=== PATIENT | female | born 1980 | race Hispanic/Latino ===

== ENCOUNTER 2018-01-10 12:49 | Outpatient (CLI) | payer BC ==
--- NOTE | 2018-01-10 15:38 | History and Physical Report ---
History of Present Illness Date of examination: 01/10/18 Chief complaint: high suspicion lt breast lesion on MR
--- NOTE | 2018-01-10 15:40 | Procedure Note ---
Date of procedure: 01/10/18 Pre-op diagnosis: lt breast mass Post-op diagnosis: same Procedure: u/s guided lt breast mass Findings: solid tissue Anesthesia: local Surgeon: RADHA MONAHAN Estimated blood loss: none Pathology: list (lt breast tissue) Specimen disposition: to lab Condition: stable Disposition: same day
--- NOTE | 2018-01-10 15:40 | Ultrasound Report ---
Bilateral breast ultrasound, ultrasound guided left breast biopsy, clip placement, 2 view left mammogram: The patient presents with an MR report indicating no malignant appearing mass in the left breast at the 6:00 location and an indeterminate appearing finding measuring approximately 5.4 mm in the upper outer right breast. Ultrasound of the right breast in the 9:00 location 8 cm from the nipple demonstrates a circumscribed anechoic mass measuring 1 cm consistent with simple cysts. No other lesions are identified in the lateral breast. Imaging of the left breast in the 6:00 location demonstrates a 1.5 cm lobulated hypoechoic mass. There is no significant shadowing. Images of the left axilla fail to identify any suspicious lymph node. The left breast skin was draped and cleansed with Betadine. 1% lidocaine used for local anesthesia. Through a small skin yamileth a 13-gauge sheath was placed through which multiple biopsy cores were obtained using a 14-gauge disposable Bard biopsy device. A marker was left in place. All procedures performed under ultrasound guidance. The entrance site was bandaged. Two-view mammogram confirm positioning of the clip located in the central breast. The patient has a generally dense fibroglandular pattern which is not otherwise remarkable. No patient or procedure complications. The patient was given followup instructions and discharged.
== END 2018-01-10 12:50 | disposition home or self-care (01) ==
LOC: SPVWC 12:49
PROVIDERS: ATTEND Surgery
DX: C50.912 Malignant neoplasm of unspecified site of left female breast (principal); R92.0 Mammographic microcalcification found on diagnostic imaging of breast
CPT/HCPCS: 19083; 76642; 77065; 88305; 88342; 88361; A4648

== ENCOUNTER 2018-01-22 12:52 | Outpatient (CLI) | payer BC ==
--- NOTE | 2018-01-22 16:02 | Mammography Report ---
RIGHT DIGITAL DIAGNOSTIC MAMMOGRAM: 01/22/18 12:52:00 CLINICAL: For clip placement immediately status post MRI biopsy. COMPARISON:01/15/18 FINDINGS: A biopsy clip is now identified in the upper outer quadrant at the site of today's MRI biopsy. No mass or architectural distortion. IMPRESSION: Concordant clip placement status post MRI biopsy. BI-RADS CATEGORY: 4--Suspicious Pathology pending.
--- NOTE | 2018-01-22 16:21 | Magnetic Resonance Report ---
MRI GUIDED VACUUM ASSISTED CORE BIOPSY RIGHT BREAST: 01/22/18 12:52:00 CLINICAL: A 5 mm right upper outer nodule identified by MRI. Newly diagnosed left breast cancer. COMPARISON: [facility] MRI 12/29/17 FINDINGS: Consent for the procedure was obtained. A Vibrant dynamic postcontrast series was performed on a 1.5 Shell magnet using an 8 channel [employer] dedicated breast coil. The lesion was localized and targeted using [employer] biopsy software. The skin was anesthetized with 1% lidocaine and a small dermatotomy was made. 2% lidocaine was administered for deeper anesthesia. 9-G biopsy was performed with an [employer] vacuum assisted device. Imaging demonstrated satisfactory positioning of the probe and samples were obtained. A clip was placed after confirmation of adequate sampling. The probe was removed and hemostasis was achieved with pressure to the site. A sterile dressing was applied. The patient tolerated the procedure well and there were no apparent complications. A two view mammogram demonstrated concordant clip placement and no hematoma at the biopsy site. The patient left the department in good condition and was given instructions for wound care and follow-up. IMPRESSION: Uncomplicated MRI biopsy with clip placement right breast.
== END 2018-01-22 12:53 | disposition home or self-care (01) ==
LOC: SPVIMAG 12:52
PROVIDERS: ATTEND Surgery
DX: R92.0 Mammographic microcalcification found on diagnostic imaging of breast (principal); N60.21 Fibroadenosis of right breast
CPT/HCPCS: 19085; 77065; 88305; A9577

== ENCOUNTER 2018-01-29 07:48 | Day surgery (SDC) | payer BC ==
[2018-01-29] MEDS ORDERED: ZOFRAN IV PRN ×2 (08:55→11:30)
[2018-01-29] MEDS ORDERED: DILAUDID IV PRN ×2 (08:55→11:30)
[2018-01-29] MEDS ORDERED: TORADOL IV PRN ×2 (08:55→11:30)
[2018-01-29] MEDS ORDERED: NEURONTIN PO NR (09:00)
[2018-01-29] MEDS ORDERED: VERSED IV NR (09:00)
[2018-01-29] MEDS ORDERED: LACTATED RINGERS 1,000 ML IV SCH ×2 (09:00)
[2018-01-29] MEDS ORDERED: XYLOCAINE 1% 20 mL ONE ×2 (09:10→11:16)
--- NOTE | 2018-01-29 09:46 | Mammography Report ---
Left breast needle localization: The patient presents with a marker in the central left breast. Using mammographic grid technique a lateral approach was utilized. The skin was cleansed and 1% lidocaine used for local anesthesia. A 7.5 cm Dobson needle was introduced and its position confirmed with mammography. A wire was then introduced with removal of the needle and additional mammography to confirm wire positioning. No patient complications encountered.
[2018-01-29] MEDS ORDERED: DECADRON ONE (09:47)
[2018-01-29] MEDS ORDERED: MARCAINE 0.5% 30 ML INFILTRATI ONE ×2 (09:47→11:20)
[2018-01-29] MEDS ORDERED: ANCEF/STERILE WATER 2 GM/20 ML IV NR (10:00)
--- NOTE | 2018-01-29 10:42 | Consultation ---
History of Present Illness Consult date: 01/29/18 Reason for consult: central line Requesting physician: KASHMIR HERNANDEZ Chief complaint: Left breast cancer - History of present illness History of present illness: 37-year-old female with recent diagnosis of left breast cancer has been referred to general surgery for port placement. Patient is scheduled for left breast surgery today. We have been asked to place the port at the same time. Patient does have experience with the port as her required. Denies any trauma, surgery, infections to the right upper chest or neck area. Denies any recent fevers, chills, nausea, vomiting. Past History Past Medical History: GERD, other (seasonal allergies) Past Surgical History: Other (sinus surgery) Social history: . denies: smoking, alcohol abuse Family history: no significant family history Medications and Allergies Allergies Allergy/AdvReac Type Severity Reaction Status Date / Time No Known Allergies Allergy Verified 01/26/18 14:08 Home Medications Medication Instructions Recorded Confirmed Last Taken Type Loratadine [Claritin] 10 mg PO DAILY 01/26/18 01/29/18 01/28/18 History Omeprazole Magnesium [PriLOSEC Otc] 20 mg PO QDAY 01/26/18 01/29/18 01/29/18 05: 30 History Active Meds: Active Medications Cefazolin Sodium (Ancef/Sterile Water 2 Gm/20 Ml) 2 gm IV PREOP NR Stop: 01/29/18 23:59 Celecoxib (Celebrex) 200 mg PO PREOP NR Stop: 01/29/18 23:59 Last Admin: 01/29/18 10:11 Dose: 200 mg Gabapentin (Neurontin) 300 mg PO PREOP NR Stop: 01/29/18 23:59 Last Admin: 01/29/18 10:11 Dose: 300 mg Hydromorphone HCl (Dilaudid) 0.5 mg IV Q10MIN PRN PRN Reason: Pain , Severe (7-10) Stop: 01/29/18 18:00 Lactated Ringer's (Lactated Ringers) 1,000 mls @ 100 mls/hr IV DIRECT WADE Stop: 01/29/18 15:00 Last Admin: 01/29/18 10:02 Dose: 100 mls/hr Lactated Ringer's (Lactated Ringers) 1,000 mls @ 100 mls/hr IV DIRECT WADE Ketorolac Tromethamine (Toradol) 30 mg IV ONCE PRN PRN Reason: Pain, Moderate (4-6) Stop: 01/29/18 18:00 Midazolam HCl (Versed) 2 mg IV PREOP NR Stop: 01/29/18 23:59 Last Admin: 01/29/18 10:25 Dose: 1 mg Ondansetron HCl (Zofran) 4 mg IV ONCE PRN PRN Reason: Nausea And Vomiting Stop: 01/29/18 18:00 Review of Systems - Constitutional no fever, no chills, no sweats - Cardiovascular no chest pain, no shortness of breath - Respiratory no cough, no shortness of breath - Gastrointestinal no abdominal pain - Genitourinary Genitourinary: no dysuria - Integumentary no rash, no pruritis, no redness, no sores, no wounds - Hematologic/Lymphatic no easy bruising, no easy bleeding - Allergic/Immunologic no persistent infections Exam - General physical appearance Positive: no distress, no pain, other (healthy appearing) - Eyes Positive: normal occular movement - Neck Positive: trachea midline, other (no evidence of neck infection, prior trauma, prior surgery.) - Respiratory Positive: normal expansion, normal respiratory effort, clear to auscultation - Cardiovascular Rhythm: regular - Integumentary no rash, no growths, no abnormal pigmentation, other (no signs of infection, prior trauma, prior surgeries to the right upper chest.) - Neurologic Neurologic: alert and oriented to time, place and person, motor strength and sensation are grossly intact - Psychiatric Psychiatric: appropriate mood/affect, intact judgment & insight Assessment and Plan - Patient Problems (1) Breast CA Current Visit: Yes Status: Acute Qualifiers: Patient sex: female Laterality: left Plan to address problem: Patient appears stable. Patient appears to be an adequate candidate for port placement. Procedure, risks, benefits, alternatives were discussed. All questions were answered. Consent was obtained. We will do the procedure under ultrasound guidance. This was explained to the patient. Time=30min
[2018-01-29] MEDS ORDERED: HEPARIN 10,000 UNITS/10 ML ONE (11:17)
[2018-01-29] MEDS ORDERED: NACL 0.9% 250ML 250 ML ONE (11:17)
[2018-01-29] MEDS ORDERED: MARCAINE 0.25% INFILTRATI ONE (11:17)
--- NOTE | 2018-01-29 11:29 | Anesthesia Day of Surgery ---
Anesthesia Day of Surgery - Day of Surgery Patient Examined: Yes Patient H&P Reviewed: Yes Patient is NPO: Yes Beta Blockers: No Cardiac Clearance: No Pulmonary Clearance: No
--- NOTE | 2018-01-29 11:30 | Anesthesia Consultation ---
Anesthesia Consult and Med Hx Date of service: 01/29/18 - Airway Anesthetic Teeth Evaluation: Good ROM Head & Neck: Adequate Mallampati Class: Class II - Pulmonary Exam CTA: Yes - Cardiac Exam Cardiac Exam: RRR - Pre-Operative Health Status ASA Pre-Surgery Classification: ASA2 Proposed Anesthetic Plan: General - Pre-Anesthesia Comment Pre-Anesthesia Comments: history of pot op nausea/vomitting - Pulmonary Hx Smoking: No - Cardiovascular System Hx Cardia Arrhythmia: No Hx Pacemaker: No Hx Internal Defibrillator: No Hx Valvular Heart Disease: No Hx Heart Murmur: No Hx Peripheral Vascular Disease: No - Central Nervous System Hx Neuromuscular Disorder: No Hx Seizures: No CVA: No Hx Back Pain: No Hx Psychiatric Problems: No - Gastrointestinal Hx Gastroesophageal Reflux Disease: Yes (gerd) - Endocrine Hx Renal Disease: No Hx End Stage Renal Disease: No Hx Cirrhosis: No Hx Liver Disease: No - Other Systems Hx Alcohol Use: No Hx Substance Use: No Hx Cancer: Yes
[2018-01-29] MEDS ORDERED: NACL 0.9% 1000 ML 1,000 ML IV SCH (12:00)
[2018-01-29] MEDS ORDERED: TRANSDERM-SCOP TD NR (12:00)
[2018-01-29] MEDS ORDERED: ZOFRAN ONE (12:12)
[2018-01-29] MEDS ORDERED: XYLOCAINE MPF 2% ONE (12:12)
[2018-01-29] MEDS ORDERED: DILAUDID ONE (12:13)
[2018-01-29] MEDS ORDERED: DIPRIVAN 10 MG/ML IV ONE (12:13)
[2018-01-29] MEDS ORDERED: ePHEDrine SULFATE ONE (13:11)
--- NOTE | 2018-01-29 13:30 | Short Stay Summary ---
Short Stay Documentation Date of service: 01/29/18 - History H&P: obtained from office Past Medical History: GERD, other (seasonal allergies) Past Surgical History: Other (sinus surgery) Social history: , no smoking, no alcohol abuse - Allergies and Medications Current Medications: Allergies No Known Allergies Allergy (Verified 01/26/18 14:08) Home Medications Medication Instructions Recorded Confirmed Last Taken Type Loratadine [Claritin] 10 mg PO DAILY 01/26/18 01/29/18 01/28/18 History Omeprazole Magnesium [PriLOSEC Otc] 20 mg PO QDAY 01/26/18 01/29/18 01/29/18 05: 30 History Active Medications Cefazolin Sodium (Ancef/Sterile Water 2 Gm/20 Ml) 2 gm IV PREOP NR Stop: 01/29/18 23:59 Celecoxib (Celebrex) 200 mg PO PREOP NR Stop: 01/29/18 23:59 Last Admin: 01/29/18 10:11 Dose: 200 mg Gabapentin (Neurontin) 300 mg PO PREOP NR Stop: 01/29/18 23:59 Last Admin: 01/29/18 10:11 Dose: 300 mg Hydromorphone HCl (Dilaudid) 0.5 mg IV Q10MIN PRN PRN Reason: Pain , Severe (7-10) Stop: 01/29/18 18:00 Hydromorphone HCl (Dilaudid) 0.5 mg IV Q10MIN PRN PRN Reason: Pain , Severe (7-10) Lactated Ringer's (Lactated Ringers) 1,000 mls @ 100 mls/hr IV DIRECT WADE Stop: 01/29/18 15:00 Last Admin: 01/29/18 10:02 Dose: 100 mls/hr Lactated Ringer's (Lactated Ringers) 1,000 mls @ 100 mls/hr IV DIRECT WADE Sodium Chloride (Nacl 0.9% 1000 Ml) 1,000 mls @ 42 mls/hr IV DIRECT WADE Ketorolac Tromethamine (Toradol) 30 mg IV ONCE PRN PRN Reason: Pain, Moderate (4-6) Stop: 01/29/18 18:00 Ketorolac Tromethamine (Toradol) 15 mg IV ONCE PRN PRN Reason: Pain, Mild (1-3) Midazolam HCl (Versed) 2 mg IV PREOP NR Stop: 01/29/18 23:59 Last Admin: 01/29/18 10:25 Dose: 1 mg Ondansetron HCl (Zofran) 4 mg IV ONCE PRN PRN Reason: Nausea And Vomiting Stop: 01/29/18 18:00 Ondansetron HCl (Zofran) 4 mg IV ONCE PRN PRN Reason: Nausea And Vomiting Scopolamine (Transderm-Scop) 1 each TD PREOP NR Stop: 02/01/18 11:59 - Brief post op/procedure progress note Date of procedure: 01/29/18 Pre-op diagnosis: Left breast cancer of the central breast Post-op diagnosis: same Procedure: Left needle localization partial mastectomy with SLNB Anesthesia: GETA Findings: Left wire and clip present within radiograph specimen; 2 SLNs Surgeon: KASHMIR HERNANDEZ Estimated blood loss: minimal Pathology: list (left partial mastectomy with SLNB) Specimen disposition: to lab Condition: stable - Disposition Condition at discharge: Good Disposition: DC-01 TO HOME OR SELFCARE Short Stay Discharge Plan Activity: other (no heavy lifting) Diet: regular Wound: other (keep incision clean and dry; may shower in 24 hours; no baths, pools or lakes; do not rub or scrub incision; wear breast binder) Follow up with: WYATT SALAZAR [Other] - 7 Days Prescriptions: HYDROcodone/APAP 5-325 [Hayes 5/325] 1 each PO Q6HR PRN #30 tablet PRN Reason: Pain Promethazine [Phenergan TAB] 25 mg PO Q8HR PRN #7 tab PRN Reason: Nausea
[2018-01-29] MEDS ORDERED: WATER FOR IRRIG STERILE IR ONE (13:35)
[2018-01-29] MEDS ORDERED: NACL 0.9% IR ONE (13:35)
[2018-01-29] MEDS ORDERED: XYLOCAINE 1% 20 mL INFILTRATI ONE ×3 (13:36→13:37)
[2018-01-29] MEDS ORDERED: MARCAINE 0.5% INFILTRATI ONE ×2 (13:36→13:59)
[2018-01-29] MEDS ORDERED: HEPARIN IV ONE (13:38)
--- NOTE | 2018-01-29 13:39 | Operative Report ---
Operative Report Operative Report: January 29, 2018 Preoperative diagnosis: Left breast cancer of the central breast Postoperative diagnosis: Same Procedure: Left needle localization partial mastectomy of the central breast and SLNB Surgeon: Argelia Zhang MD Anesthesia: General Findings: Left wire and clip present within radiograph specimen; x2 SLNs Complications: None EBL: Minimal Disposition: PACU in good condition Indications for operative procedure: This is a 37 year old lady with newly diagnosed left central breast cancer, Stage I [id number] ER/SD/Her-2 positive. Recommendations are to proceed with breast conservation. Genetic testing with no significant gene mutation. Patient diagnosed from screening breast MRI and findings of left breast mass at the 6:00 position of 13-14 mm. She understands the role of adjuvant chemoradiation therapy. She wished to proceed with the above procedure. Procedure in detail: The patient was taken to radiology for wire placement for localization known area of cancer. Patient was then taken to the operating room. Gen. anesthesia was administered. The left nipple was injected with radioisotope. The left breast and axilla were prepped and draped in the normal sterile operative fashion. The wire was identified. Timeout was performed. Gamma probe was inserted into the axilla. The area of hot spot was identified. A left axillary incision was made with a 15 blade knife with dissection taken down to the subcutaneous tissues. The axillary fascia was opened with the Bovie cautery. 2 SLNS were identified. All remaining counts were less than 10% of the highest count. Lymph nodes were sent to pathology for permanent processing. Hemostasis was obtained in the left axillary cavity. Axillary cavity was appropriately irrigated and suctioned. The axillary cavity was anesthetized with 1% lidocaine mixed with quarter percent Marcaine. Hemostasis was noted. Axillary fascia was approximated and closed using interrupted 3-0 Vicryl and the skin brought together and closed using a running 4-0 Monocryl followed by skin affix. Attention was then taken towards the left breast. Lateral breast incision was made with a 15 blade knife and dissection taken down to subcutaneous tissues. First began raising of the lateral flap with removal of the wire from the skin with dissection take down to the pectoralis muscle, followed by raising of the medial flap, superior flap and inferior flap with all flaps taken down to the pectoralis muscle. The breast area of concern was appropriately removed posteriorly from the pectoralis muscle with the aid of the Bovie cautery. The wire was not encountered. Specimen was marked and then sent to pathology and radiology; radiograph specimen with wire, clip and mass present. Additional revised anterior margin was taken as well and marked. Breast cavity was irrigated and hemostasis was obtained. The breast cavity was anesthetized with 1 % lidocaine mixed with quarter percent Marcaine. The posterior deep breast tissues were approximated and closed using interrupted 3-0 Vicryl. The subcutaneous tissues were approximated and closed using interrupted 3-0 Vicryl followed by closing of the skin with a running 4-0 Monocryl and skin affix. The patient tolerated surgery very well and she was awaken from anesthesia without any complication and transported to PACU in good condition.
[2018-01-29] MEDS ORDERED: NACL 0.9% IV ONE (13:40)
--- NOTE | 2018-01-29 14:35 | Fluoroscopy Report ---
FLUOROSCOPY CENTRAL VENOUS DEVICE PLACEMENT HISTORY: chest pain AP view of the chest demonstrates a normal mediastinal and cardiac contour with clear lungs and normal bony and soft tissue structures. A right [id number] has been inserted which terminates in the lower right atrium. No pneumothorax. IMPRESSION: Unremarkable AP chest.
--- NOTE | 2018-01-29 14:37 | Post Operative Note ---
Date of procedure: 01/29/18 (Dictation:[id number]) Pre-op diagnosis: breast cancer Post-op diagnosis: same Findings: normal anatomy Procedure: Ultrasound guided port placement. Anesthesia: GETA Surgeon: HÉCTOR GRAFF Estimated blood loss: minimal (10cc) Pathology: none Condition: stable Disposition: no change
--- NOTE | 2018-01-29 16:22 | Mammography Report ---
Operative specimen mammogram: A single tissue specimen is submitted it includes the targeted marker and localizing wire.
[2018-01-29] MEDS ORDERED: NORCO 5/325 PO PRN (17:14)
[2018-01-29 19:09] VITALS: BP 123/75
--- NOTE | 2018-02-05 07:30 | Operative Report ---
PREOPERATIVE DIAGNOSIS: Breast cancer. POSTOPERATIVE DIAGNOSIS: Breast cancer. PROCEDURE: 1. Insertion of tunneled centrally inserted venous access device with subcutaneous port. 2. Ultrasound guidance for vascular access. ATTENDING PHYSICIAN: Shanthi Chauhan MD ANESTHESIA: General. ESTIMATED BLOOD LOSS: 10 mL. FLUIDS: 1200 mL. FINDINGS: Normal vascular anatomy. Chest x-ray shows no obvious complication. Implant subcutaneous port and catheter. COMPLICATIONS: No complications. DISPOSITION: Case turned over to Dr. Zhang. INDICATIONS: This is a 37-year-old woman with a recent diagnosis of breast cancer, who is in need of port placement. This was an urgent case that we got consulted on near the time of surgery. The patient assessed to be an acceptable candidate for port placement. The procedure, risks, benefits were explained to the patient. Risks included but were not limited to infection, bleeding, pain, injury to surrounding structures, possible hemopneumothorax possible need for further procedures in the future. The patient understood and consented. DESCRIPTION OF PROCEDURE: The patient was brought to the operating room and placed on the table in supine position. Ultrasound examination was done to identify the right subclavian vein and right internal jugular vein. They seemed to be acceptable targets. A roll was placed underneath the spine. Sterile prep and drape was performed. Ancef had been administered prior to start of the case. SCDs are in place. Time-out was called. Under ultrasound guidance, I first infiltrated the tissue above the subclavian vein on the right with a combination of 0.5% Marcaine and 1% lidocaine. Then under ultrasound guidance, we accessed the subclavian vein. A guidewire passed easily. We confirmed the position of the wire with fluoroscopy. I then turned my attention to creation of a pocket. We anesthetized the planned incision site and pocket space. Sharp incision was made with a scalpel. Pocket was bluntly created. We made sure the port fit and then packed the wound with gauze. I then used the tunneler to place the catheter underneath the skin and bring it out the vascular insertion site. Over the guidewire, the dilator and sheath were placed. It went easily. Guidewire was mobile the entire time. We then pulled out the wire and dilator and inserted the catheter. We checked the approximate location, adjusted its length, so it was approximately 2 vertebral body below the roberto. We then adjusted the overall length. Please note that the catheter was clamped during this time to make sure there was no aspiration of air. We then adjusted the length all the while keeping the catheter clamped. The port was attached and then placed in the pocket, we checked with fluoroscopy. The catheter had no kinks, however I felt there was a bit deep. Therefore, we pulled some of the catheter back, cut some of the length. We cut off another centimeter and a half and then reconnected everything. Prior to doing this, we did aspirate and flushed with dilute heparinized saline. It aspirated and flushed very easily. At this point, I felt that we would not gain much by continually pulling back the catheter. I thought it was acceptable at this point. We then aspirated and placed concentrated heparin in the port. We placed 5 mL of a 200 unit per mL mixture. We made sure there was no bleeding. Deep tissue and dermis was closed with interrupted 3-0 Vicryl sutures at the port site. Skin sites were closed with 4-0 Monocryl subcuticular stitches. Skin was cleaned and dried. Dermabond was placed. The patient tolerated procedure well. There were no complications. I reviewed the chest x-ray that was done in the operating room. I saw no pneumothorax. The catheter had a good path without any kinks or twists. We will wait for the official report. I spoke with the family. They are appreciative of the care. Case was turned over to Dr. Zhang. ADDENDUM DESCRIPTION OF PROCEDURE: Ultrasound examination was done of the subclavian and internal jugular vessels on the right side. They were easily compressible. I saw no evidence of any clot or narrowing. At the time of the procedure, we watched the echogenic needle going under direct vision under ultrasound guidance, I watched to go into the subclavian vein and we were able to aspirate easily, tip of the needle was within the subclavian vein. There was no obvious injury to the surrounding tissue under ultrasound guidance. JOB# [id number] LOGAN/DANA
--- NOTE | 2018-02-05 07:35 | Operative Report ---
ADDENDUM DESCRIPTION OF PROCEDURE: Ultrasound examination was done of the subclavian and internal jugular vessels on the right side. They were easily compressible. I saw no evidence of any clot or narrowing. At the time of the procedure, we watched the echogenic needle going under direct vision under ultrasound guidance, I watched to go into the subclavian vein and we were able to aspirate easily, tip of the needle was within the subclavian vein. There was no obvious injury to the surrounding tissue under ultrasound guidance. JOB# [id number] LOGAN/DANA
== END 2018-01-29 18:55 | disposition home or self-care (01) ==
LOC: OR 07:48
PROVIDERS: ATTEND Surgery
DX: C50.112 Malignant neoplasm of central portion of left female breast (principal); K21.9 Gastro-esophageal reflux disease without esophagitis; Z98.890 Other specified postprocedural states; Z80.3 Family history of malignant neoplasm of breast
CPT/HCPCS: 19281; 19301; 36561; 38525; 76098; 77001; 78800; 81025; 88307; 88333; 88342; A9541; C1788; J0690; J1100; J1170; J1644; J2250; J2405; J2704; J7050; J7120

== ENCOUNTER 2019-02-25 12:47 | Outpatient (CLI) | payer BC ==
--- NOTE | 2019-02-26 08:50 | Ultrasound Report ---
COMPLETE LEFT BREAST ULTRASOUND HISTORY: Left breast cancer status post left partial mastectomy. Recent nipple discharge and a questi onable intraductal lesion at 3:00 on a recent ultrasound by Dr. Zhang. COMPARISON: None. FINDINGS: Complete sonographic evaluation including imaging of the four quadrants and subareolar aspe ct of the left breast demonstrates no distinct abnormality. No duct ectasia and no mass or suspicio us shadowing. Retraction of the nipple. IMPRESSION Negative left breast ultrasound. BIRADS 1: Negative. Signer Name: Veto Mcelroy MD Signed: 02/26/2019 8:45 AM Workstation Name: [id number]
--- NOTE | 2019-02-27 09:24 | Magnetic Resonance Report ---
BILATERAL BREAST MR WITHOUT AND WITH GADOLINIUM INDICATION: History of left breast cancer status post left partial mastectomy 01/29/2018. Left bloody nipple discharge. Street of a benign right MRI biopsy 01/22/2018 COMPARISONS: 01/22/2018 right breast MRI. She had a previous MRI at [facility]. TECHNIQUE: Axial 1.0 mm T1 without, axial high-resolution 2.0 mm T2 and axial 1.0 mm dynamic vibrant high-resolution postcontrast T1 fat saturation sequences on a 1.5 Shell magnet. The examination was p erformed with an 8-channel dedicated [place] breast coil. Post-processing with CAD and subtraction was performed on an [employer] workstation. 14.0 cc of MultiHance was injected without incident for the c ontrast portion of the exam. Consent was obtained prior to the administration of the contrast. FINDINGS: RIGHT BREAST: Minimal background parenchymal enhancement. No mass or suspicious enhancement. The prev iously identified upper outer nodule is no longer identified. No suspicious lymph nodes. LEFT BREAST: Minimal background parenchymal enhancement. The left breast is smaller than the right wi th central posterior nonenhancing scar. Mild subareolar fluid with retraction of the nipple and nonen hancing scar extending to the posterior surgical scar. The surgical scar measures 3.3 x 2.3 cm. Minim al a 2 cm seroma is identified with a scar. No suspicious lymph nodes. IMPRESSION: 1. No suspicious findings of either breast. 2. Postsurgical changes in the left breast with benign scar and a 2 cm seroma at the scar. 3. I suspect that the nipple discharge may be drainage from the seroma. BI-RADS Category 2 Benign Signer Name: Veto Mcelroy MD Signed: 02/27/2019 9:19 AM Workstation Name: [id number]
== END 2019-02-25 12:48 | disposition home or self-care (01) ==
LOC: SPVWC 12:47
PROVIDERS: ATTEND Surgery
DX: C50.112 Malignant neoplasm of central portion of left female breast (principal); K21.9 Gastro-esophageal reflux disease without esophagitis
CPT/HCPCS: 76641; A9577; C8908; 77049

== ENCOUNTER 2019-07-15 06:15 | Day surgery (SDC) | payer BC, OTHER ==
[~2019-07-15 06:15] MED LIST: MIDAZOLAM 2 MG/2 ML INJ IV NR; ceFAZolin/Water 2 GM/20 ML 2 GM/20 ML SYRINGE IV NR
[2019-07-15] MEDS ORDERED: BACTERIOSTATIC SODIUM CHLORIDE 0.9% 30 ML VIAL INFILTRATI ONE (06:30)
[2019-07-15] MEDS: LACTATED RINGERS 1,000 ML IV SCH ×2 (06:50→10:30)
[2019-07-15] MEDS ORDERED: BUPIVACAINE/PF (0.25%) 2.5 MG/ML 30 ML VIAL INFILTRATI ONE ×2 (06:58→08:24)
[2019-07-15] MEDS ORDERED: LIDOCAINE (1%) 10 MG/1 ML VIAL 20 ML MDV ONE (06:58)
[2019-07-15] MEDS ORDERED: SCOPOLAMINE TRANSDERMAL PATCH 72 HR TD NR (07:18)
[2019-07-15] MEDS ORDERED: fentaNYL 100 MCG/2 ML INJ IV PRN (07:18)
--- NOTE | 2019-07-15 07:20 | Anesthesia Consultation ---
Anesthesia Consult and Med Hx Date of service: 07/15/19 - Airway Anesthetic Teeth Evaluation: Good ROM Head & Neck: Adequate Mental/Hyoid Distance: Adequate Mallampati Class: Class II Intubation Access Assessment: Probably Good - Pulmonary Exam CTA: Yes - Cardiac Exam Cardiac Exam: RRR - Pre-Operative Health Status ASA Pre-Surgery Classification: ASA2 Proposed Anesthetic Plan: MAC - Pulmonary Hx Smoking: No Hx Respiratory Symptoms: No - Cardiovascular System Hx Hypertension: No Hx Heart Attack/AMI: No Hx Percutaneous Transluminal Coronary Angioplasty (PTCA): No - Central Nervous System CVA: No - Gastrointestinal Hx Gastroesophageal Reflux Disease: Yes (took prilosec this morning) - Endocrine Hx Renal Disease: No Hx Liver Disease: No Hx Insulin Dependent Diabetes: No Hx Non-Insulin Dependent Diabetes: No Hx Thyroid Disease: No - Other Systems Hx Cancer: Yes (hx breast ca) - Additional Comments Anesthesia Medical History Comments: Takes xarelto for clot in port. Last dose 07/11/19.
--- NOTE | 2019-07-15 07:20 | Anesthesia Day of Surgery ---
Anesthesia Day of Surgery - Day of Surgery Patient Examined: Yes Patient H&P Reviewed: Yes Patient is NPO: Yes
[2019-07-15] MEDS ORDERED: PROPOFOL 200 MG/20 ML VIAL IV ONE (07:38)
[2019-07-15] MEDS ORDERED: fentaNYL 100 MCG/2 ML INJ ONE (07:38)
[2019-07-15] MEDS ORDERED: LIDOCAINE MPF (2%) 20 MG/1 ML VIAL 5 ML ONE (07:39)
[2019-07-15] MEDS ORDERED: ONDANSETRON 4 MG/2 ML INJ ONE (08:16)
[2019-07-15] MEDS ORDERED: LIDOCAINE (1%) 10 MG/1 ML VIAL 20 ML MDV INFILTRATI ONE (08:25)
[2019-07-15] MEDS ORDERED: SODIUM CHLORIDE 0.9% IRR 1,500 ML BOTTLE IR ONE (08:25)
--- NOTE | 2019-07-15 08:55 | Operative Report ---
Operative Report Operative Report: Operative Report: Date of Service: July 15, 2019 Properative diagnosis: Right port with central venous access not indicated Postoperative diagnosis: Same Procedure: Right port removal Surgeon: Argelia Zhang MD Anesthesia: Local MAC Findings: Removal of right port in its entirety Complications: None Drain: None Disposition: PACU in good condition Indications for operative procedure: This is a 39-year-old lady with a personal history of left breast cancer. Patient has completed neoadjuvant chemotherapy and central venous access no longer indicated. Patient wished to proceed with port removal. Procedure in detail: Patient was taken to the operating procedure room. She was laid supine. Local MAC anesthesia was administered. The port was identified of the right chest. The right chest was prepped and draped in the normal sterile operative fashion. The skin was anesthetized with 1% lidocaine mix with quarter percent Marcaine. The prior port incision was opened with a 15 blade knife and taken down to the subcutaneous tissues. The port was encountered. The catheter was encountered and was appropriately dissected free and removed in its entirety. Then proceed with port removal with dissection of scar tissue around the port. The port was removed in its entirety without any complications. Hemostasis was obtained. The subcutanoeus tisses were brought together and closed with interrupted 3-0 Vicryl followed by closing of the skin with a runnin g 4-0 Monocryl. She tolerated the procedure very well and was transferred to PACU in good condition.
--- NOTE | 2019-07-15 08:58 | Short Stay Summary ---
Short Stay Documentation Date of service: 07/15/19 - History H&P: obtained from office - Allergies and Medications Current Medications: Allergies No Known Allergies Allergy (Verified 07/10/19 17:24) Home Medications Medication Instructions Recorded Confirmed Last Taken Type Omeprazole Magnesium [PriLOSEC Otc] 20 mg PO QDAY 01/26/18 07/15/19 07/15/19 05:00 History Exemestane [Aromasin] 25 mg PO QDAY 07/10/19 07/15/19 07/14/19 History Rivaroxaban [Xarelto] 20 mg PO QDAY 07/10/19 07/15/19 07/11/19 History Active Medications Fentanyl (Sublimaze) 50 mcg IV Q5MIN PRN PRN Reason: Pain , Severe (7-10) Stop: 07/15/19 20:00 Cefazolin Sodium (Ancef/Sterile Water 2 Gm/20 Ml) 2 gm in 20 mls @ 80 mls/hr IV PREOP NR; Protocol Stop: 07/15/19 23:00 Lactated Ringer's (Lactated Ringers) 1,000 mls @ 100 mls/hr IV DIRECT WADE Last Admin: 07/15/19 06:50 Dose: 100 mls/hr Documented by: Midazolam HCl (Versed) 2 mg IV PREOP NR Stop: 07/15/19 23:59 Last Admin: 07/15/19 07:19 Dose: 2 mg Documented by: Scopolamine (Transderm-Scop) 1 each TD PREOP NR Stop: 07/15/19 23:59 Last Admin: 07/15/19 07:25 Dose: 1 each Documented by: - Brief post op/procedure progress note Date of procedure: 07/15/19 Pre-op diagnosis: Central venous access not indicated Post-op diagnosis: same Procedure: Right port removal Anesthesia: MAC Findings: Right port removed in its entirety Surgeon: KASHMIR HERNANDEZ Estimated blood loss: minimal Pathology: none Specimen disposition: discarded Condition: stable - Disposition Condition at discharge: Good Disposition: DC-01 TO HOME OR SELFCARE Short Stay Discharge Plan Activity: no restrictions Diet: regular Wound: keep clean and dry (may remove bandage 24 hours and shower in 24 hours; no baths) Follow up with: NICK SALAZAR [Other] - 7 Days KASHMIR HERNANDEZ MD [Staff Physician] - 7 Days
[2019-07-15] MEDS ORDERED: ONDANSETRON 4 MG/2 ML INJ IV PRN (10:00)
[2019-07-15] MEDS ORDERED: PROMETHAZINE 25 MG RECT SUPP PR ONE (11:06)
[2019-07-15 11:19] VITALS: BP 126/80
[2019-07-15] MEDS ORDERED: PROMETHAZINE 25 MG RECT SUPP PR PRN (11:30)
--- NOTE | 2019-07-15 12:10 | Post Anesthesia Evaluation ---
- Post Anesthesia Evaluation Patient Participated: Yes Airway Patent: Yes Stable Respiratory Function: Yes Nausea/Vomiting: Yes (improved with antiemetics) Temp > 96.8F: Yes Pain Manageable: Yes Adequeate Hydration: Yes Anesthesia Complications: No
== END 2019-07-15 06:16 | disposition home or self-care (01) ==
LOC: OR 06:15
PROVIDERS: ATTEND Surgery
DX: C50.912 Malignant neoplasm of unspecified site of left female breast (principal); K21.9 Gastro-esophageal reflux disease without esophagitis; F15.90 Other stimulant use, unspecified, uncomplicated; Z79.899 Other long term (current) drug therapy; Z80.3 Family history of malignant neoplasm of breast; Z98.890 Other specified postprocedural states
CPT/HCPCS: 36590; J0690; J2250; J2405; J2704; J3010; J7120

== ENCOUNTER 2020-03-11 15:08 | Outpatient (CLI) | payer OTHER ==
--- NOTE | 2020-03-11 18:26 | Ultrasound Report ---
EXAMINATION: Left Complete Breast Ultrasound, 03/11/2020 INDICATION: HISTORY OF BREAST CANCER. Patient presents for evaluation of an area of reported thickening adjacent to her surgical scar in the left breast. COMPARISON: Prior mammogram 12/16/2019 FINDINGS: Complete sonographic evlauation of all 4 quadrants and retroareolar region was performed. Benign postlumpectomy change is seen in the left breast 4:00 position located 7 cm from the nipple wi th a small underlying fluid collection measuring up to 2.0 x 0.5 x 1.3 cm. There is no sonographic ab normality of the area of reported thickening in the left breast 4:30 position located 9 cm from the n ipple. Otherwise, complete ultrasound of the left breast is unremarkable without suspicious cystic or solid lesion identified. There is no left axillary adenopathy.. IMPRESSION: 1. Benign post lumpectomy change seen in the 4:00 left breast. No suspicious sonographic abnormality to account for the reported area of thickening adjacent to the surgical site, therefore clinical migdalia elation is recommended. Follow up recommendation: Back to schedule. BI-RADS Category 2: Benign. Signer Name: Jo Ann Philip MD Signed: 03/11/2020 6:22 PM Workstation Name: [id number]
== END 2020-03-11 15:09 | disposition home or self-care (01) ==
LOC: SPVWC 15:08
PROVIDERS: ATTEND Surgery
DX: Z85.3 Personal history of malignant neoplasm of breast (principal); Z98.890 Other specified postprocedural states

== ENCOUNTER 2020-07-01 09:21 | Outpatient (CLI) | payer OTHER ==
--- NOTE | 2020-07-01 11:25 | Magnetic Resonance Report ---
BILATERAL BREAST MRI WITH AND WITHOUT CONTRAST CLINICAL INFORMATION/INDICATION: Patient has history of left breast carcinoma treated with lumpectomy and radiation in 2017 2018. On prior left breast ultrasound, 03/11/2020, patient had reported area of thickening adjacent to her lumpectomy scar in the left breast. TECHNICAL: Coronal STIR, axial T1 and T2-weighted fat sat images were obtained precontrast. Gadoliniu m-based contrast was injected intravenously and serial axial T1 weighted images with fat saturation w ere obtained. 3-D MIP projections, kinetic analysis and subtraction imaging was utilized to evaluate. A dedicated 8-channel breast coil was used for image acquisition. COMPARISON: Recent bilateral screening mammogram 12/16/2019 and prior bilateral breast MRI exam, 2018 FINDINGS: Right breast: There is a 7 mm oval nonenhancing high signal mass in the upper outer quadrant of the r ight breast, posterior depth. This unchanged from 2019 MRI. The appearance is most suggestive of an i nflammatory cyst. Additionally there is artifact from biopsy clip in the 10-11:00 location, as noted on prior MRI. The remainder of the right breast is unremarkable. No abnormally enhancing masses or dsouza spicious findings identified. Left breast: Post lumpectomy scarring and small lumpectomy cavity is noted in the upper outer left br east, posterior depth, similar in appearance to 2019 MRI exam.. There is no abnormal enhancement asso ciated with the lumpectomy site. The remainder of the breast is unremarkable as well. No axillary alex nopathy. Additional findings: Localizing images show no visible thoracic spine or hepatic abnormality. IMPRESSION: 1. No MRI evidence of malignancy within either breast. 2. Postlumpectomy radiation change noted in the left breast, similar to 2019 exam. 3. Inflammatory cyst right breast, upper outer quadrant, unchanged from 2019 MRI. Follow up recommendation: Continued annual screening mammography. Routine yearly BI-RADS Category 2: Benign. Signer Name: Pilar Hyman MD Signed: 07/01/2020 11:20 AM Workstation Name: [id number]
== END 2020-07-01 09:22 | disposition home or self-care (01) ==
LOC: SPVIMAG 09:21
PROVIDERS: ATTEND Surgery
DX: C50.912 Malignant neoplasm of unspecified site of left female breast (principal); N63.11 Unspecified lump in the right breast, upper outer quadrant; Z85.3 Personal history of malignant neoplasm of breast
CPT/HCPCS: A9577; C8908; 77049

== ENCOUNTER 2020-12-17 07:57 | Outpatient (CLI) | payer OTHER ==
--- NOTE | 2020-12-17 09:38 | Mammography Report ---
DIGITAL SCREENING MAMMOGRAM WITH CAD, 12/17/2020 CLINICAL INFORMATION / INDICATION: Routine screening mammography. SCREENING MAMMO TECHNIQUE: Digital bilateral 2D mammography was obtained in the craniocaudal and mediolateral obliqu e projections. This examination was interpreted with the benefit of Computer-Aided Detection analysis . COMPARISON: 12/16/19, 06/06/19 FINDINGS: Breast Density: The breasts are heterogeneously dense, which may obscure small masses. No dominant mass, suspicious calcifications, or architectural distortion in either breast. Left breast postoperative findings are unchanged. Right breast biopsy marker is unchanged. IMPRESSION: No mammographic evidence of malignancy. Follow up recommendation: Routine yearly BI-RADS Category 2: Benign. A "normal" or negative report should not discourage follow up or biopsy of a clinically significant f inding. A written summary of these findings will be mailed to the patient. The patient will be entered into a mammography reporting system which will generate a reminder letter for the patient's next appointmen t at the appropriate interval. [employer] recommends yearly mammograms starting at age 40 and continuing as l bebe as a woman is in good health. Breast MRI is recommended for women with an approximate 20-25% or greater lifetime risk of breast cancer, including women with a strong family history of breast or ova karla cancer or who have been treated for Hodgkin's disease. Signer Name: Jackie Brown MD Signed: 12/17/2020 9:33 AM Workstation Name: [id number]
== END 2020-12-17 07:58 | disposition home or self-care (01) ==
LOC: SPVWC 07:57
PROVIDERS: ATTEND Surgery
DX: Z12.31 Encounter for screening mammogram for malignant neoplasm of breast (principal)
CPT/HCPCS: 77067